=== PATIENT | male | born 1990 | race Caucasian/White ===

== ENCOUNTER 2021-01-22 14:47 | Emergency (ER) | payer OTHER ==
[~2021-01-22] VITALS: Ht 172.7 cm; Wt 65.8 kg
[2021-01-22] MEDS ORDERED: AUGMENTIN 875-1 EACH PO (16:44)
[2021-01-22 16:50] VITALS: BP 131/70
== END 2021-01-22 16:51 | disposition home or self-care (01) ==
LOC: M.ERS 14:47
DX: S01.511A Laceration without foreign body of lip, initial encounter (principal); Z88.1 Allergy status to other antibiotic agents; W54.0XXA Bitten by dog, initial encounter; Y93.89 Activity, other specified; Y92.89 Other specified places as the place of occurrence of the external cause; Y99.8 Other external cause status